=== PATIENT | female | born 1960 | race Two or more races ===

== ENCOUNTER 2017-10-04 10:04 | Outpatient (CLI) | payer OTHER ==
[~2017-10-04 10:04] MED LIST: LEVAQUIN500 MG PO; TUSSI PRES-B L120 M1 PO; ULTRACET PO
== END 2017-10-04 10:10 | disposition home or self-care (01) ==
LOC: LAB 10:04
DX: E55.9 Vitamin D deficiency, unspecified (principal); E21.2 Other hyperparathyroidism; E88.89 Other specified metabolic disorders; M81.8 Other osteoporosis without current pathological fracture; E56.1 Deficiency of vitamin K

== ENCOUNTER 2018-02-20 14:35 | Emergency (ER) | payer OTHER ==
[~2018-02-20] VITALS: Ht 152.4 cm; Wt 63.5 kg
[2018-02-20] MEDS ORDERED: VITAMIN D1000 UNIT (16:19)
== END 2018-02-20 20:23 | disposition home or self-care (01) ==
LOC: ER 14:35
DX: K29.60 Other gastritis without bleeding (principal); E73.8 Other lactose intolerance

== ENCOUNTER → 2018-07-23 | Outpatient (CLI) | payer OTHER ==
[~2018-07-23] MED LIST changes: +VITAMIN D1000 UNIT
== END | disposition home or self-care (01) ==
LOC: MAMO-SONO 11:21
DX: N60.11 Diffuse cystic mastopathy of right breast (principal); Z12.31 Encounter for screening mammogram for malignant neoplasm of breast

== ENCOUNTER → 2018-08-15 07:11 | Outpatient (CLI) | payer OTHER | END | disposition home or self-care (01) | LOC: LAB 07:11 | DX: N60.11 Diffuse cystic mastopathy of right breast (principal) ==

== ENCOUNTER 2019-03-16 16:42 | Outpatient (CLI) | payer OTHER | END 2019-03-16 17:00 | disposition home or self-care (01) | LOC: TOM 16:42 | DX: M54.5 Low back pain (principal) ==

== ENCOUNTER 2019-03-17 10:14 | Outpatient (CLI) | payer OTHER | END 2019-03-17 10:45 | disposition home or self-care (01) | LOC: LAB 10:14 | DX: D64.89 Other specified anemias (principal); E11.9 Type 2 diabetes mellitus without complications; E78.2 Mixed hyperlipidemia; E03.8 Other specified hypothyroidism; N39.0 Urinary tract infection, site not specified ==

== ENCOUNTER 2019-04-10 07:48 | Outpatient (CLI) | payer OTHER | END 2019-04-10 08:31 | disposition home or self-care (01) | LOC: NUCLEAR 07:48 | DX: I20.0 Unstable angina (principal) | CPT/HCPCS: 78452; 93017; A9500; J0153 ==

== ENCOUNTER 2020-03-25 09:50 | Outpatient (CLI) | payer OTHER | END 2020-03-25 10:00 | disposition home or self-care (01) | LOC: LAB 09:50 | PROVIDERS: ATTEND Internal Medicine | DX: D64.89 Other specified anemias (principal); E11.9 Type 2 diabetes mellitus without complications; E78.2 Mixed hyperlipidemia; E03.8 Other specified hypothyroidism; N39.0 Urinary tract infection, site not specified; E55.9 Vitamin D deficiency, unspecified ==

== ENCOUNTER 2020-03-25 10:20 | Outpatient (CLI) | payer OTHER | END 2020-03-25 10:47 | disposition HB | LOC: RAD 10:20 | PROVIDERS: ATTEND Internal Medicine | DX: M54.2 Cervicalgia (principal) ==

== ENCOUNTER → 2020-03-30 | Outpatient (CLI) | payer OTHER | END | disposition home or self-care (01) | LOC: MAMO-SONO 14:15 | PROVIDERS: ATTEND Internal Medicine | DX: N60.01 Solitary cyst of right breast (principal); N60.11 Diffuse cystic mastopathy of right breast; N60.12 Diffuse cystic mastopathy of left breast; Z12.31 Encounter for screening mammogram for malignant neoplasm of breast ==

== ENCOUNTER 2021-04-17 14:21 | Outpatient (CLI) | payer OTHER | END 2021-04-17 14:29 | disposition home or self-care (01) | LOC: RAD 14:21 | PROVIDERS: ATTEND Internal Medicine | DX: M54.50 Low back pain, unspecified (principal) | CPT/HCPCS: 72148 ==

== ENCOUNTER 2021-05-17 14:07 | Outpatient (CLI) | payer OTHER | END 2021-05-17 14:13 | disposition home or self-care (01) | LOC: MAMO-SONO 14:07 | PROVIDERS: ATTEND Obstetrics & Gynecology | DX: N60.11 Diffuse cystic mastopathy of right breast (principal) ==

== ENCOUNTER 2022-05-23 10:36 | Outpatient (CLI) | payer OTHER | END 2022-05-23 10:50 | disposition home or self-care (01) | LOC: MAMO-SONO 10:36 | PROVIDERS: ATTEND Obstetrics & Gynecology | DX: N60.11 Diffuse cystic mastopathy of right breast (principal) ==

== ENCOUNTER 2023-05-29 08:54 | Outpatient (CLI) | payer OTHER | END 2023-05-29 09:05 | disposition home or self-care (01) | LOC: MAMO-SONO 08:54 | PROVIDERS: ATTEND Obstetrics & Gynecology | DX: N60.11 Diffuse cystic mastopathy of right breast (principal) ==

== ENCOUNTER → 2024-05-18 08:40 | Outpatient (CLI) | payer OTHER ==
[2024-05-18 11:00] LABS: ALBUMIN 3.7 gm/dL (3.4-5.0); BILIRUBIN TOTAL 0.44 mg/dL (0.3-1.2); CALCIUM 9.2 mg/dL (8.5-10.1); CHOL HDL RATIO 2.1 (0-5.0); CREATININE SERUM 0.64 mg/dL (0.55-1.02); GFR 94.03; GLOBULINA 3.6 G/DL (2.4-3.5); POTASSIUM 4.69 mEq/L (3.5-5.1); T4 FREE 0.94 NG/ML (0.76-1.46); TOTAL PROTEIN 7.3 gm/dL (6.4-8.2); TSH 1.02 uIU/mL (0.358-3.74)
== END | disposition home or self-care (01) ==
LOC: LAB 08:40
DX: E78.2 Mixed hyperlipidemia (principal); M54.50 Low back pain, unspecified; I10 Essential (primary) hypertension; E03.9 Hypothyroidism, unspecified

== ENCOUNTER 2024-07-21 13:15 | Outpatient (CLI) | payer OTHER | END 2024-07-21 13:23 | disposition home or self-care (01) | LOC: MAMO-SONO 13:15 | PROVIDERS: ATTEND Internal Medicine | DX: M41.25 Other idiopathic scoliosis, thoracolumbar region (principal); N60.39 Fibrosclerosis of unspecified breast; Z12.31 Encounter for screening mammogram for malignant neoplasm of breast ==

== ENCOUNTER 2024-08-17 11:14 | Outpatient (CLI) | payer OTHER | END 2024-08-17 11:17 | disposition home or self-care (01) | LOC: TOM 11:14 | PROVIDERS: ATTEND Orthopaedic Surgery Orthopaedic Surgery of the Spine | DX: M48.062 Spinal stenosis, lumbar region with neurogenic claudication (principal) ==

== ENCOUNTER 2025-03-03 15:55 | Outpatient (CLI) | payer OTHER | END 2025-03-03 15:59 | disposition home or self-care (01) | LOC: RAD 15:55 | DX: S09.90XA Unspecified injury of head, initial encounter (principal); X58.XXXA Exposure to other specified factors, initial encounter; Y93.9 Activity, unspecified; Y92.9 Unspecified place or not applicable; Y99.9 Unspecified external cause status ==